=== PATIENT | female | born 1985 | race Caucasian/White ===

== ENCOUNTER 2018-08-10 11:16 | Emergency (ER) | payer OTHER ==
[~2018-08-10] VITALS: Ht 167.6 cm; Wt 68.0 kg
[2018-08-10 11:18] VITALS: Ht 167.6 cm; Wt 68.0 kg
[2018-08-10 13:07] VITALS: BP 103/75
== END 2018-08-10 13:07 | disposition home or self-care (01) ==
LOC: EDBD 11:16 → ED 11:16
DX: T78.3XXA Angioneurotic edema, initial encounter (principal); Y92.89 Other specified places as the place of occurrence of the external cause
CPT/HCPCS: J7512